=== PATIENT | female | born 1965 | race Two or more races ===

== ENCOUNTER 2017-06-07 20:10 | Emergency (ER) | payer SELFPAY ==
[2017-06-07 20:25] VITALS: BP 165/105; PULSE 115; TEMP 98.3; BMI 38.9
--- NOTE | 2017-06-07 20:51 | PDOC ---
History of Present Illness - General Chief Complaint: Injury Stated Complaint: RASH Time Seen by Provider: 06/07/17 20:23 History Source: Patient Exam Limitations: No Limitations - History of Present Illness Initial Comments: CHIEF COMPLAINT: 51 y/o afebrile female with PMH HTN, NIDDM with multiple complaints after slip and fall at 4pm today. HISTORY OF PRESENT ILLNESS: The patient states she slipped going into her home this afternoon, falling down on her butt and right hand, and hitting the back of her head on the wall. She did not lose consciousness but did feel dizzy. She now has right wrist pain and head and neck pain. She denies changes in vision/hearing, bleeding from ears/nose, cough, n/v/d, CP, SOB, abd pain, numbness/tingling in extremities. She has not taken anything for pain. Vital signs on arrival are notable for pulse of 115 with BP of 165/105. REVIEW OF SYSTEMS: GENERAL/CONSTITUTIONAL: No fever/chills. No weakness. No weight change. HEAD, EYES, EARS, NOSE AND THROAT: No change in vision. No ear pain or discharge. No sore throat. CARDIOVASCULAR: No chest pain or shortness of breath. RESPIRATORY: No cough, wheezing, or hemoptysis. GASTROINTESTINAL: No abd pain, nausea, vomiting, diarrhea. GENITOURINARY: No dysuria, frequency, or change in urination. MUSCULOSKELETAL: +right wrist pain. +neck pain and back pain. SKIN: No rash or easy bruising. NEUROLOGIC: +headache. +dizziness - resolved. No loss of consciousness or loss of sensation. PHYSICAL EXAM: GENERAL: The patient is awake, alert, and fully oriented, in no acute distress. She is ambulatory and well appearing. HEAD: Normal with no signs of trauma. No hematomas. No lacerations. NECK: Pain with palpation of midline cervical spine without step offs or crepitus. Full flexion, extension and lateral movements of neck. ENT: Pupils equal, round and reactive to light, extraocular movements intact, sclera anicteric, conjunctiva clear. No raccoon eyes. No orbital swelling, deformities or crepitus. No pain with EOMs. ?left hemotympanum at 6 o'clock on the rim. LUNGS: Clear to auscultation bilaterally. Normal excursion. No respiratory distress or use of accessory muscles. CV: RRR, S1/S2, no MRG. Cap refill < 2 sec. ABDOMEN: Soft, non-distended, non-tender even to deep palpation, no hepatomegaly or splenomegaly, no masses. BACK: TTP of lumbar and thoracic paravertebral muscles b/l. No midline lumbar or thoracic spine TTP or step offs. EXTREMITIES: Edema and erythema to right dorsal hand at base of thumb and snuffbox area. Snuffbox TTP. Decreased flexion and extension of right thumb and 2nd digit secondary to pain. No lacerations, streaking, deformities or crepitus. Abrasions and ecchymosis to right posterior arm that is TTP. NEUROLOGICAL: Normal speech, normal gait. CN II-XII grossly intact. PSYCH: Normal mood, normal affect. SKIN: Warm, dry, normal turgor, no rashes or lesions noted. Past History - Past Medical History Allergies/Adverse Reactions: Allergies Allergy/AdvReac Type Severity Reaction Status Date / Time acetaminophen Allergy Verified 06/07/17 20:20 Home Medications: Ambulatory Orders Gabapentin 400 mg PO ASDIR 06/07/17 Losartan/Hydrochlorothiazide [Losartan-Hctz 100-12.5 mg Tab] 1 each PO ASDIR 03/15 Metformin HCl [Glucophage] 1,000 mg PO ASDIR 06/07/17 COPD: No HTN: Yes Hypercholesterolemia: Yes - Suicide/Smoking/Psychosocial Hx Smoking Status: No Smoking History: Former smoker Have you smoked in the past 12 months: No Number of Cigarettes Smoked Daily: 0 Information on smoking cessation initiated: No *Physical Exam - Vital Signs Last Vital Signs Temp Pulse Resp BP Pulse Ox 98.3 F 115 H 18 165/105 97 06/07/17 20:21 06/07/17 20:21 06/07/17 20:21 06/07/17 20:21 06/07/17 20:21 Medical Decision Making - Medical Decision Making A/P: 51 y/o female with right wrist pain, head and neck pain after fall with head trauma this afternoon. Plan is as follows: 1. Head CT 2. Cervical spine CT 3. Xray right hand/wrist I am signing this patient out to my colleague: KD Pulido In brief, this patient is being seen in the ED for a chief complaint of: head and neck pain, right wrist pain I have completed the initial assessment interview note and have ordered: Head and C spine CT, right wrist xray I have reviewed the following results: none Pending results are: all Plan for disposition is as follows: pending *DC/Admit/Observation/Transfer Diagnosis at time of Disposition: Wrist pain Qualifiers: Laterality: right Qualified Code(s): M25.531 - Pain in right wrist Closed head injury Qualifiers: Encounter type: initial encounter Qualified Code(s): S09.90XA - Unspecified injury of head, initial encounter Neck muscle strain Qualifiers: Encounter type: initial encounter Qualified Code(s): S16.1XXA - Strain of muscle, fascia and tendon at neck level, initial encounter - Discharge Dispostion Disposition: HOME Condition at time of disposition: Stable - Referrals Referrals: ON STAFF,NOT [Primary Care Provider] - - Patient Instructions Printed Discharge Instructions: Whiplash, DI for Closed Head Injury, DI for Wrist Pain Additional Instructions: Ice; 20 mins on alternating with 20 mins off for 48 hours while awake. Rest Elevate Follow up with your orthopedic surgeon or the one listed on the discharge form. Return to the ER for severe/persistent/worsening symptoms, extremity numbness/ tingling sensation. - Post Discharge Activity
--- NOTE | 2017-06-07 23:37 | PDOC ---
*Physical Exam - Vital Signs Last Vital Signs Temp Pulse Resp BP Pulse Ox 98.3 F 115 H 18 165/105 97 06/07/17 20:21 06/07/17 20:21 06/07/17 20:21 06/07/17 20:21 06/07/17 20:21 ED Treatment Course - RADIOLOGY Radiograph Interpretation: 06/07/17 23:37 xray wrist=neg CT head; no acute intracranial pathology CT neck w/o contrast; neg *DC/Admit/Observation/Transfer Diagnosis at time of Disposition: Wrist pain Qualifiers: Laterality: right Qualified Code(s): M25.531 - Pain in right wrist Closed head injury Qualifiers: Encounter type: initial encounter Qualified Code(s): S09.90XA - Unspecified injury of head, initial encounter Neck muscle strain Qualifiers: Encounter type: initial encounter Qualified Code(s): S16.1XXA - Strain of muscle, fascia and tendon at neck level, initial encounter - Discharge Dispostion Disposition: HOME Condition at time of disposition: Stable Admit: No - Referrals Referrals: ON STAFF,NOT [Primary Care Provider] - - Patient Instructions Printed Discharge Instructions: DI for Closed Head Injury, Whiplash, DI for Wrist Pain Additional Instructions: Ice; 20 mins on alternating with 20 mins off for 48 hours while awake. Rest Elevate Follow up with your orthopedic surgeon or the one listed on the discharge form. Return to the ER for severe/persistent/worsening symptoms, extremity numbness/ tingling sensation. - Post Discharge Activity
== END 2017-06-07 23:59 | disposition home or self-care (01) ==
LOC: JERFT 20:10
DX: S09.8XXA Other specified injuries of head, initial encounter (principal); S16.1XXA Strain of muscle, fascia and tendon at neck level, initial encounter; M25.531 Pain in right wrist; W01.0XXA Fall on same level from slipping, tripping and stumbling without subsequent striking against object, initial encounter; Y93.89 Activity, other specified; Y92.038 Other place in apartment as the place of occurrence of the external cause; I10 Essential (primary) hypertension; E11.9 Type 2 diabetes mellitus without complications; Z79.84 Long term (current) use of oral hypoglycemic drugs
CPT/HCPCS: 70450-TC; 72125-TC; 73110-TC-RT-FY; 73130-TC-RT-FY; 99281-25

== ENCOUNTER 2018-06-16 20:31 | Emergency (ER) | payer SELFPAY ==
[2018-06-16 20:38] VITALS: BP 154/84; PULSE 89; TEMP 97.8; BMI 27.4
--- NOTE | 2018-06-16 20:45 | PDOC ---
Rapid Medical Evaluation Chief Complaint: Injury Time Seen by Provider: 06/16/18 20:43 Medical Evaluation: Allergies Allergy/AdvReac Type Severity Reaction Status Date / Time acetaminophen Allergy Verified 06/16/18 20:38 Vital Signs Temp Pulse Resp BP Pulse Ox 97.8 F 89 18 154/84 100 06/16/18 20:36 06/16/18 20:36 06/16/18 20:36 06/16/18 20:36 06/16/18 20:36 06/16/18 20:44 Pt c/o: right ankle injury last week, had sx with hardware previously Pt on brief exam: medial deformity, 2+ pedal pulse Pt ordered for: ankle xray Pt to proceed to the ED Discharge Disposition - Diagnosis Injury, ankle - Referrals - Patient Instructions - Post Discharge Activity
--- NOTE | 2018-06-16 21:25 | PDOC ---
History of Present Illness - General Chief Complaint: Injury Stated Complaint: RT ANKLE PAIN/NECK PAIN Time Seen by Provider: 06/16/18 20:43 History Source: Patient Exam Limitations: No Limitations - History of Present Illness Initial Comments: 06/16/18 21:21 HISTORY OF PRESENT ILLNESS: 52-year-old woman past medical history of right tibia fracture status post ORIF 2013 presents emergency department for evaluation of right foot and ankle pain status post trip and fall on 06/14. Patient reports a department came to her building knocked on the door and told her to evacuate causing her to panic and run out of her apartment. On the whole left side of her apartment she tripped over some debris falling to the ground and hurting her foot and ankle. Patient reports she was afraid of receiving a large pill from calling 911 and defer treatment until today. Patient reports the pain is gotten increasingly worse. No recent travel or sick contacts. PAST MEDICAL HISTORY: Denies past medical history SURGICAL HISTORY: Denies ALLERGIES: Tylenol REVIEW OF SYSTEMS General/Constitutional: Denies fever or chills. Denies weakness, weight change. HEENT: Denies change in vision. Denies ear pain or discharge. Denies sore throat. Cardiovascular: Denies chest pain or shortness of breath. Respiratory: Denies cough, wheezing, or hemoptysis. Gastrointestinal: Denies nausea, vomiting, diarrhea or constipation. Denies rectal bleeding. Genitourinary: Denies dysuria, frequency, or change in urination. Musculoskeletal: see HPI Skin and breasts: Denies rash or easy bruising. Neurologic: Denies headache, vertigo, loss of consciousness, or loss of sensation. Psychiatric: Denies depression or anxiety. Endocrine: Denies increased thirst. Denies abnormal weight change. Hematologic/Lymphatic: Denies anemia, easy bleeding, or history of blood clots. Allergic/Immunologic: Denies hives or skin allergy. Denies latex allergy. PHYSICAL EXAM General Appearance: Well-appearing, appropriately dressed. No apparent distress , no intoxication. HEENT: EOMI, PERRLA, normal ENT inspection, normal voice, TMs normal, pharynx normal. No conjunctival pallor. No photophobia, scleral icterus. Neck: Supple. Trachea midline. No tenderness, rigidity, carotid bruit, stridor , lymphadenopathy, or thyromegaly. Respiratory/Chest: Lungs CTAB. No shortness of breath, chest tenderness, respiratory distress, accessory muscle use. No crackles, rales, rhonchi, stridor , wheezing, dullness Cardiovascular: RRR. S1, S2. No JVD, murmur, bradycardia, tachycardia. Vascular Pulses: Dorsalis-Pedis (R): 2+, Dorsalis-Pedis (L): 2+ Gastrointestinal/Abdominal: Normal bowel sounds. Abdomen soft, non-distended. No tenderness or rebound tenderness. No organomegaly, pulsatile mass, guarding, hernia, hepatomegaly, splenomegaly. Lymphatic: No adenopathy, tenderness. Musculoskeletal/Extremities: Full active range of motion of the right foot and ankle present. Normal capillary refill present in all 5 digits of the right foot. Bony tenderness present over the distal shaft of the fifth metatarsal of the right foot and to the right medial malleolus. Swelling present over the right lateral malleolus. Palpable hardware presents to the right medial malleolus. Surgical incision noted to the medial aspect of the right foot. Integumentary: Appropriate color, dry, warm. No cyanosis, erythema, jaundice or rash Neurologic: reweaver II-XII intact. Fully oriented, alert. Appropriate mood/affect. Motor strength 5/5. No appreciable EOM palsy, facial droop or sensory deficit. Past History - Past Medical History Allergies/Adverse Reactions: Allergies Allergy/AdvReac Type Severity Reaction Status Date / Time acetaminophen Allergy Verified 06/16/18 20:38 Home Medications: Ambulatory Orders Gabapentin 400 mg PO ASDIR 06/07/17 Losartan/Hydrochlorothiazide [Losartan-Hctz 100-12.5 mg Tab] 1 each PO ASDIR 03/15 Metformin HCl [Glucophage] 1,000 mg PO ASDIR 06/07/17 COPD: No HTN: Yes Hypercholesterolemia: Yes - Suicide/Smoking/Psychosocial Hx Smoking Status: No Smoking History: Never smoked Have you smoked in the past 12 months: No Number of Cigarettes Smoked Daily: 0 Information on smoking cessation initiated: No Hx Alcohol Use: No Drug/Substance Use Hx: No *Physical Exam - Vital Signs Last Vital Signs Temp Pulse Resp BP Pulse Ox 97.8 F 89 18 154/84 100 06/16/18 20:36 06/16/18 20:36 06/16/18 20:36 06/16/18 20:36 06/16/18 20:36 Moderate Sedation - Procedure Monitoring Vital Signs: Procedure Monitoring Vital Signs Temperature 97.8 F 06/16/18 20:36 Pulse Rate 89 06/16/18 20:36 Respiratory Rate 18 06/16/18 20:36 Blood Pressure 154/84 06/16/18 20:36 O2 Sat by Pulse Oximetry (%) 100 06/16/18 20:36 ED Treatment Course - RADIOLOGY Radiology Studies Ordered: Category Date Time Status FOOT-RIGHT [RAD] Stat Radiology 06/16/18 21:20 Ordered Medical Decision Making - Medical Decision Making 06/16/18 21:24 A/P: 52-year-old woman with right ankle and foot pain status post trip and fall 2 days ago X-rays of the right foot and right ankle Motrin 600 mg orally now Reassess 06/16/18 21:52 X-rays as read by me: Fixation hardware in place. No fractures or dislocations noted. Soft tissue swelling present over the lateral malleolus and distal head of the fifth metatarsal. Venkat wrap, Aircast, discharge Patient reports she is going to call her orthopedic surgeon at [facility] who performed the ORIF for reevaluation. I discussed the physical exam findings, ancillary test results and final diagnoses with the patient. I answered all of the patient's questions. The patient was satisfied with the care received and felt comfortable with the discharge plan and treatment plan. The patient will call their primary care physician within 24 hours to arrange follow-up and will return to the Emergency Department with any new, persistent or worsening symptoms. *DC/Admit/Observation/Transfer Diagnosis at time of Disposition: Injury, ankle Qualifiers: Encounter type: initial encounter Laterality: right Qualified Code(s): S99.911A - Unspecified injury of right ankle, initial encounter - Discharge Dispostion Disposition: HOME Condition at time of disposition: Stable Decision to Admit order: No - Referrals Referrals: Praveen Patiño MD [Staff Physician] - - Patient Instructions Additional Instructions: Take Tylenol or Motrin as needed for pain. Follow manufacturers instructions for appropriate dosage. Try not to walk or bear weight on your left ankle as much as possible for the next 3 days. Apply ice for 20 minutes and removed for at least 20 minutes before reapplying the ice. Keep Venkat wrap on your ankle as much as possible to help decrease some of the swelling control pain. Whenever possible keep her foot elevated to decrease swelling to your ankle. You've been given the number for an orthopedist. If symptoms do not resolve within the next 7 days call the orthopedist for further evaluation. Return to emergency department for discoloration of the foot, numbness or tingling to the foot, worsening pain, or any other concerns. Thank you very much for choosing us to provide your emergent healthcare needs. - Post Discharge Activity Forms/Work/School Notes: Back to Work
[2018-06-16] MEDS ORDERED: IBUPROFEN 600 MG TABLET (FP) PO ONE (21:33)
== END 2018-06-16 22:38 | disposition home or self-care (01) ==
LOC: JERFT 20:31
DX: S99.811A Other specified injuries of right ankle, initial encounter (principal); W18.09XA Striking against other object with subsequent fall, initial encounter; Y93.89 Activity, other specified; Y92.018 Other place in single-family (private) house as the place of occurrence of the external cause; Y99.8 Other external cause status; I10 Essential (primary) hypertension; E78.00 Pure hypercholesterolemia, unspecified; Z87.81 Personal history of (healed) traumatic fracture
CPT/HCPCS: 73610-TC-RT-FY; 73630-TC-RT-FY; 99281-25

== ENCOUNTER 2021-12-03 14:20 | Emergency (ER) | payer OTHER ==
[2021-12-03 14:34] VITALS: RESP 18; TEMP 98.1; BMI 25.0
[2021-12-03] MEDS ORDERED: SODIUM CHLORIDE 1,000 ML IV STA ×2 (14:53→17:01)
[2021-12-03] MEDS ORDERED: ONDANSETRON 4 MG/2 ML VIAL IVPUSH ONE (15:19)
[2021-12-03] MEDS ORDERED: ONDANSETRON 4 MG/2 ML VIAL ONE (16:24)
[2021-12-03 16:29] LABS: EOS % 1.9 % (0-4.5); HEMATOCRIT 38.2 % (32.4-45.2); HEMOGLOBIN 12.8 GM/dL (10.7-15.3); LYMPH % 38.4 % (8-40); MCH 27.8 pg (25.7-33.7); MCHC 33.5 g/dl (32.0-36.0); MEAN CELL VOLUME 83.1 fl (80-96); MEAN PLT VOLUME 8.9 fl (7.5-11.1); MONO % 5.8 % (3.8-10.2); NEUT % 52.9 % (42.8-82.8); PLATELET COUNT 362 10^3/uL (134-434); RDW 15.3 % (11.6-15.6)
[2021-12-03 16:43] LABS: ALBUMIN 3.5 g/dl (3.4-5.0); BLOOD UREA NITROGEN 14.5 mg/dL (7-18); CALCIUM 9.1 mg/dL (8.5-10.1); MAGNESIUM 2.3 mg/dL (1.8-2.4)
[2021-12-03 16:46] LABS: CREATININE 0.7 mg/dL (0.55-1.3)
[2021-12-03 16:48] LABS: BILIRUBIN,TOTAL 0.4 mg/dL (0.2-1); TOT PROT 7.5 g/dl (6.4-8.2)
[2021-12-03] MEDS ORDERED: POTASSIUM CHLORIDE TABS 20 MEQ TABLET.ER (FP) PO ONE ×2 (16:54→17:36)
[2021-12-03 17:17] LABS: PH,URINE 7.5 (5.0-8.0); URINE APPEARANCE CLEAR; URINE BILIRUBIN NEGATIVE (NEGATIVE); URINE COLOR YELLOW; URINE GLUCOSE (UA) NEGATIVE (NEGATIVE); URINE KETONE NEGATIVE (NEGATIVE); URINE LEUK ESTERASE NEGATIVE (NEGATIVE); URINE NITRITE NEGATIVE (NEGATIVE); URINE PROTEIN NEGATIVE (NEGATIVE); URINE UROBILINOGEN 0.2 mg/dL (0.2-1.0)
[2021-12-03 17:20] LABS: HCG,QUALITATIVE URINE Negative
[2021-12-03 19:56] VITALS: BP 101/61; PULSE 74
== END 2021-12-03 21:02 | disposition home or self-care (01) ==
LOC: JER 14:20
PROC: 3E033NZ Introduction of Analgesics, Hypnotics, Sedatives into Peripheral Vein, Percutaneous Approach (ICD-10-PCS; principal; 2021-12-03)
PROC: 3E0337Z Introduction of Electrolytic and Water Balance Substance into Peripheral Vein, Percutaneous Approach (ICD-10-PCS; 2021-12-03)
PROC: 3E0337Z Introduction of Electrolytic and Water Balance Substance into Peripheral Vein, Percutaneous Approach (ICD-10-PCS; 2021-12-03)
DX: R07.89 Other chest pain (principal)
CPT/HCPCS: 71046-TC-FY; 71275-TC; 80053; 81003; 83735; 84132; 84443; 84484; 84703; 85025; 93005; 93010; 99285-25; C9803-CS; Q9967; U0003; U0005